=== PATIENT | female | born 1990 | race Caucasian/White ===

== ENCOUNTER 2016-06-29 16:44 | Outpatient (CLI) | payer OTHER ==
[~2016-06-29] VITALS: Ht 154.9 cm; Wt 75.2 kg
[~2016-06-29 16:44] MED LIST: ACYCLOVIR400 MG PO; IBUPROFEN800 MG PO; Motrin PO; NOHOMEMEDS; PRENATAL TABLE1 EAC3 PO; TYLENOL WITH C1 EACH PO; ZANTAC75 M1 PO
[2016-06-29 17:00] VITALS: BP 130/79
[2016-06-29 17:24] VITALS: BP 137/86
[2016-06-29 18:07] VITALS: BP 122/70
== END 2016-06-29 19:28 | disposition home or self-care (01) ==
LOC: LDRP-OP 16:44 → 2WEST 16:45 → LDRP-OP 10-03 20:05
DX: O99.89 Other specified diseases and conditions complicating pregnancy, childbirth and the puerperium (principal); Z3A.00 Weeks of gestation of pregnancy not specified
CPT/HCPCS: 59025; G0378

== ENCOUNTER 2016-07-27 17:31 | Outpatient (CLI) | payer OTHER ==
[~2016-07-27] VITALS: Ht 154.9 cm; Wt 79.4 kg
[2016-07-27] MEDS ORDERED: PRENATAL TABLE1 EAC3 PO (17:47)
[2016-07-27 18:08] VITALS: BP 128/73
[2016-07-27 18:53] LABS: ADD MIUA? NO; BILIRUBIN NEGATIVE; BLOOD NEGATIVE; COLOR COLORLESS ((YELLOW)); GLUCOSE (STRIP) NEGATIVE; KETONES NEGATIVE; LEUKOCYTES NEGATIVE; NITRITE NEGATIVE; PROTEIN (STRIP) NEGATIVE; SPECIFIC GRAVITY 1.002 (1.000-1.030); UCUL ADDED? NO; UROBILINOGEN 0.2 MG/DL (0.2-1.0)
[2016-07-27 19:00] VITALS: BP 125/85
[2016-07-27 19:15] LABS: AMPHETAMINES QUANT VALUE 0 NG/ML; BARBITUATES QUANT VALUE 0 NG/ML; BENZODIAZEPINES QUANT VALUE 0 NG/ML; BENZODIAZEPINES, URINE SCREEN Negative (200 ng/mL); MARIJUANA QUANT VALUE 0 NG/ML; OPIATES QUANTITATIVE VALUE 0 NG/ML; PHENCYCLIDINE QUANT VALUE 0 NG/ML
[2016-07-27 21:29] LABS: CANDIDA DNA PROBE POSITIVE; GARDNERELLA DNA PROBE NEGATIVE; INTERNAL CONTROL VALID? YES
== END 2016-07-27 19:10 | disposition home or self-care (01) ==
LOC: LDRP-OP 17:31 → 2WEST 17:32 → LDRP-OP 10-03 21:41
PROVIDERS: Advanced Practice Midwife
DX: O47.03 False labor before 37 completed weeks of gestation, third trimester (principal); Z3A.34 34 weeks gestation of pregnancy
CPT/HCPCS: 59025; 80306 90; 81003; 82731; 87086; 87480; 87510; 87660; G0378

== ENCOUNTER 2016-08-10 02:39 | Outpatient (CLI) | payer OTHER ==
[~2016-08-10] VITALS: Ht 154.9 cm; Wt 81.6 kg
[2016-08-10 02:54] VITALS: BP 120/75
[2016-08-10 04:34] VITALS: BP 115/80
[2016-08-10] MEDS ORDERED: ZOVIRAX400 MG PO (05:02)
[2016-08-10] MEDS ORDERED: ANUSOL-HC21 GM PR (05:02)
== END 2016-08-10 05:10 | disposition home or self-care (01) ==
LOC: LDRP-OP 02:39 → 2WEST 02:40 → LDRP-OP 10-03 19:35
DX: O47.1 False labor at or after 37 completed weeks of gestation (principal); Z3A.36 36 weeks gestation of pregnancy
CPT/HCPCS: 59025; G0378

== ENCOUNTER 2016-08-21 21:13 | Outpatient (CLI) | payer OTHER ==
[~2016-08-21] VITALS: Ht 154.9 cm; Wt 81.7 kg
[~2016-08-21 21:13] MED LIST changes: +ANUSOL-HC21 GM PR; +ZOVIRAX400 MG PO
[2016-08-21 21:34] VITALS: BP 132/91
[2016-08-21 22:08] VITALS: BP 129/88
[2016-08-21 22:10] LABS: EOSINOPHIL (%) 1.5 % (0-5); EOSINOPHIL COUNT 0.1 K/uL (0-0.3); HEMATOCRIT 29.3 % (36.0-46.0); IMMATURE GRANULOCYTE (%) 0.7 % (0.0-0.7); IMMATURE GRANULOCYTE COUNT 0.1 K/uL; INSTRUMENT ABS NEUTROPHIL CT 5.3 K/uL; LYMPHOCYTE COUNT 2.5 K/uL (1.0-2.8); MCHC 33.1 G/DL (30.0-36.0); MCV 84.7 FL (83-99); MEAN PLAT.VOLUME 11.2 uM^3 (9.5-12.4); MONOCYTE (%) 9.6 % (3-12); MONOCYTE COUNT 0.9 K/uL (0-0.8); NEUTROPHIL COUNT 5.3 K/uL (1.8-6.4); PLATELET COUNT 190 K/uL (156-360); RBC DIS.WIDTH-CV 12.9 % (11.8-14.6); RBC DIS.WIDTH-SD 39.7 % (39-53); RED BLOOD COUNT 3.46 M/uL (3.80-5.20); WHITE BLOOD COUNT 8.8 K/uL (4.1-10.2)
[2016-08-21 22:25] LABS: ANION GAP 8 MEQ/L (2-14); CHLORIDE 107 MEQ/L (99-109); POTASSIUM 3.4 MEQ/L (3.7-5.4); SAMPLE HEMOLYSIS CHECK 0; SAMPLE ICTERIC CHECK 0; SAMPLE LIPEMIA CHECK 0; SODIUM 136 MEQ/L (136-147); TOTAL BILIRUBIN 0.3 MG/DL (0.0-1.0)
[2016-08-21 22:30] LABS: ALKALINE PHOSPHATASE 155 IU/L (3-129); GFR ESTIMATE (CALCULATED) > 59 mL/min/; GLUCOSE 87 mg/dL (70-99); LACTATE DEHYDROGENASE 146 IU/L (20-246); UREA NITROGEN (BUN) 8 mg/dL (9-23); URIC ACID 4.2 mg/dL (3.1-9.2)
[2016-08-21 22:46] LABS: UR CREATININE CONCENTRATION 81.9 MG/DL
== END 2016-08-21 23:10 | disposition home or self-care (01) ==
LOC: LDRP-OP 21:13 → 2WEST 21:15 → LDRP-OP 10-03 05:20
PROVIDERS: Advanced Practice Midwife
DX: O26.893 Other specified pregnancy related conditions, third trimester (principal); Z3A.38 38 weeks gestation of pregnancy
CPT/HCPCS: 59025; 80053; 82570; 83615; 84156; 84550; 85025; G0378

== ENCOUNTER 2016-08-30 07:48 | Inpatient (IN) | payer OTHER ==
[2016-08-30] VITALS (31 sets, daily range): BP systolic 114–148; BP diastolic 59–95
[~2016-08-30] VITALS: Ht 154.9 cm; Wt 79.8 kg
[2016-08-30] MEDS ORDERED: PROCTOSOL-HC28.35 GM PR (08:33)
[2016-08-30 10:00] LABS: EOSINOPHIL (%) 1.4 % (0-5); EOSINOPHIL COUNT 0.1 K/uL (0-0.3); HEMATOCRIT 31.7 % (36.0-46.0); IMMATURE GRANULOCYTE (%) 0.4 % (0.0-0.7); INSTRUMENT ABS NEUTROPHIL CT 4.6 K/uL; LYMPHOCYTE COUNT 2.1 K/uL (1.0-2.8); MCH 27.6 PG (29.0-34.0); MCHC 32.5 G/DL (30.0-36.0); MEAN PLAT.VOLUME 12.1 uM^3 (9.5-12.4); MONOCYTE (%) 6.2 % (3-12); MONOCYTE COUNT 0.5 K/uL (0-0.8); NEUTROPHIL (%) 63.1 % (45-76); NEUTROPHIL COUNT 4.6 K/uL (1.8-6.4); PLATELET COUNT 182 K/uL (156-360); RBC DIS.WIDTH-CV 13.5 % (11.8-14.6); RBC DIS.WIDTH-SD 41.3 % (39-53); RED BLOOD COUNT 3.73 M/uL (3.80-5.20); WHITE BLOOD COUNT 7.3 K/uL (4.1-10.2)
[2016-08-31 00:30] VITALS: BP 129/58
[2016-08-31 01:31] VITALS: BP 112/66
[2016-08-31 06:28] VITALS: BP 126/78
[2016-08-31 06:58] LABS: EOSINOPHIL (%) 0.4 % (0-5); EOSINOPHIL COUNT 0.1 K/uL (0-0.3); HEMATOCRIT 33.5 % (36.0-46.0); IMMATURE GRANULOCYTE (%) 0.3 % (0.0-0.7); LYMPHOCYTE COUNT 2.2 K/uL (1.0-2.8); MCH 27.8 PG (29.0-34.0); MCHC 32.8 G/DL (30.0-36.0); MCV 84.6 FL (83-99); MONOCYTE (%) 9.3 % (3-12); MONOCYTE COUNT 1.3 K/uL (0-0.8); PLATELET COUNT 190 K/uL (156-360); RBC DIS.WIDTH-CV 13.3 % (11.8-14.6); RBC DIS.WIDTH-SD 41.1 % (39-53); RED BLOOD COUNT 3.96 M/uL (3.80-5.20)
[2016-08-31 07:17] LABS: WHITE BLOOD COUNT 13.6 K/uL (4.1-10.2)
[2016-08-31 15:18] VITALS: BP 125/82
[2016-08-31 23:08] VITALS: BP 117/73
[2016-09-01 07:15] VITALS: BP 122/83
[2016-09-01] MEDS ORDERED: IBUPROFEN800 MG PO (09:36)
== END 2016-09-01 13:40 | disposition home or self-care (01) | DRG 774 ==
LOC: LDRP-OP 07:48 → 2WEST 07:49 → LDRP-OP 09:51 → 2WEST 22:20 → LDRP-OP 10-03 02:35
PROVIDERS: Advanced Practice Midwife
PROC: 10E0XZZ Delivery of Products of Conception, External Approach (ICD-10-PCS; principal; 2016-08-30)
PROC: 3E0R3NZ Introduction of Analgesics, Hypnotics, Sedatives into Spinal Canal, Percutaneous Approach (ICD-10-PCS; principal; 2016-08-30)
PROC: 3E0P7GC Introduction of Other Therapeutic Substance into Female Reproductive, Via Natural or Artificial Opening (ICD-10-PCS; principal; 2016-08-30)
PROC: 10907ZC Drainage of Amniotic Fluid, Therapeutic from Products of Conception, Via Natural or Artificial Opening (ICD-10-PCS; principal; 2016-08-30)
DX: O98.52 Other viral diseases complicating childbirth (principal); Z3A.39 39 weeks gestation of pregnancy; B00.9 Herpesviral infection, unspecified; Z79.899 Other long term (current) drug therapy
CPT/HCPCS: 85025; C1755; J0595; J2405; J3010; J7120